=== PATIENT | male | born 2000 | race Caucasian/White ===

== ENCOUNTER 2020-02-21 12:27 | Emergency (ER) | payer SELFPAY ==
[~2020-02-21] VITALS: Ht 177.8 cm; Wt 77.1 kg
[2020-02-21] MEDS ORDERED: BACITRACIN TOP OINT 1 UD PKG TOP ONE (15:15)
[2020-02-21] MEDS ORDERED: NEOMYCIN-BACITRACIN-POLYM UNITDOSE PKG TOP OINT TOP ONE (15:15)
[2020-02-21 17:20] VITALS: BP 122/74
== END 2020-02-21 17:26 | disposition home or self-care (01) ==
LOC: EDBD 12:27 → ER 12:27
DX: S01.81XA Laceration without foreign body of other part of head, initial encounter (principal); X58.XXXA Exposure to other specified factors, initial encounter; Y93.89 Activity, other specified; Y92.89 Other specified places as the place of occurrence of the external cause; Y99.8 Other external cause status
CPT/HCPCS: 12052; 70450